=== PATIENT | male | born 1960 | race African-American/Black ===

== ENCOUNTER 2016-10-31 09:40 | Inpatient (IN) | payer OTHER ==
[~2016-10-31] VITALS: Ht 167.6 cm; Wt 75.5 kg
[~2016-10-31 09:40] MED LIST: BUDE10.2 IH; CETI10CA PO; CETI10TA16 PO; DOCU100C28 PO; HYDR-2678 PO; LOSA100T6 PO; POLY119P4 PO; POLY17PO29 PO
--- NOTE | 2016-10-31 09:42 | PHYS DOC ---
Past Medical History Past Medical History: Constipation, Hypertension, Other Additional Past Medical Histor: seasonal allergies, ABDOMINAL PAIN, drug seeking behavior Past Surgical History: No Surgical History Alcohol Use: Occasionally Drug Use: None Adult General Chief Complaint Chief Complaint: LOWER EXTREMITY SWELLING HPI HPI Patient is a 57 year old -Vietnamese male who presents with bilateral foot swelling. He states that this morning he notices feet swelling. He denies any pain in his ankles, he denies any Pain any shortness of breath fevers chills nausea vomiting. He does have a sore on the bottom of his right lateral distal foot that's been there for he states about a week that's been painful. He states he's been taking Aleve 2 tablets every other day for chronic pain and this isn't helping this pain. 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 States he took his last blood pressure medicine today. Review of Systems Review of Systems Constitutional: Denies fever or chills [] Eyes: Denies change in visual acuity, redness, or eye pain [] HENT: Denies nasal congestion or sore throat [] Respiratory: Denies cough or shortness of breath [] Cardiovascular: No additional information not addressed in HPI [] GI: Denies abdominal pain, nausea, vomiting, bloody stools or diarrhea [] : Denies dysuria or hematuria [] Musculoskeletal: Denies back pain or joint pain [] Integument: Denies rash or skin lesions [] Neurologic: Denies headache, focal weakness or sensory changes [] Endocrine: Denies polyuria or polydipsia [] Current Medications Current Medications Current Medications Medications (Trade) Dose Ordered Sig/[facility] Start Time Stop Time Status Last Admin Dose Admin Aspirin (Kathleen Aspirin) 325 mg 1X ONCE 10/31/16 11:30 10/31/16 11:31 Morphine Sulfate 2 mg PRN Q2HR PRN 10/31/16 11:30 11/01/16 11:29 Ondansetron HCl (Zofran) 4 mg PRN Q8HRS PRN 10/31/16 11:30 11/01/16 11:29 Allergies Allergies Allergies Coded Allergies Type Severity Reaction Last Updated Verified No Known Drug Allergies 10/31/16 No Physical Exam Physical Exam Constitutional: Well developed, well nourished, no acute distress, non-toxic appearance. [] HENT: Normocephalic, atraumatic, bilateral external ears normal, oropharynx moist, no oral exudates, nose normal. [] Eyes: PERRLA, EOMI, conjunctiva normal, no discharge. [] Neck: Normal range of motion, no tenderness, supple, no stridor. [] Cardiovascular:Heart rate regular rhythm, no murmur [] Lungs & Thorax: Bilateral breath sounds clear to auscultation [] Abdomen: Bowel sounds normal, soft, no tenderness, no masses, no pulsatile masses. [] Skin: Warm, dry, no erythema, no rash. [] Back: No tenderness, no CVA tenderness. [] Extremities: No tenderness, no cyanosis, no clubbing, ROM intact, 1+ bilateral lower show many edema from ankles to mid lr, 3 mm callus on the distal lateral plantar aspect of the right foot, no erythema noted. [] Neurologic: Alert and oriented X 3, normal motor function, normal sensory function, no focal deficits noted. [] Psychologic: Affect normal, judgement normal, mood normal. [] Current Patient Data Vital Signs Vital Signs Date Time Temp Pulse Resp B/P (MAP) Pulse Ox O2 Delivery O2 Flow Rate FiO2 10/31/16 09:55 97.8 109 19 137/94 (108) 97 Room Air 97.8 Lab Values Laboratory Tests Test 10/31/16 10:05 10/31/16 10:10 Urine Collection Type Unknown Urine Color [place] Urine Clarity Clear Urine pH 5.5 Urine Specific [place] 1.025 Urine Protein Negative mg/dL (NEG-TRACE) Urine Glucose (UA) Negative mg/dL (NEG) Urine Ketones (Stick) 40 mg/dL (NEG) Urine Blood Negative (NEG) Urine Nitrite (NEG) Urine Bilirubin (NEG) Urine Urobilinogen Dipstick 2.0 mg/dL (0.2 mg/dL) Urine Leukocyte Esterase (NEG) Urine RBC 0 /HPF (0-2) Urine WBC 1-4 /HPF (0-4) Urine Squamous Epithelial Cells Few /LPF Urine Bacteria Few /HPF (0-FEW) Urine Mucus Marked /LPF Urine Opiates Screen Neg (NEG) Urine Methadone Screen Neg (NEG) Urine Barbiturates Neg (NEG) Urine Phencyclidine Screen Neg (NEG) Urine Amphetamine/Methamphetamine Neg (NEG) Urine Benzodiazepines Screen Neg (NEG) Urine Cocaine Screen Neg (NEG) Urine Cannabinoids Screen Pos (NEG) Urine Ethyl Alcohol Pos (NEG) White Blood Count 9.7 x10^3/uL (4.0-11.0) Red Blood Count 2.52 x10^6/uL (4.30-5.70) L Hemoglobin 10.1 g/dL (13.0-17.5) L Hematocrit 28.1 % (39.0-53.0) L Mean Corpuscular Volume 111 fL (79-100) H Mean Corpuscular Hemoglobin 40 pg (25-35) H Mean Corpuscular Hemoglobin Concent 36 g/dL (31-37) Red Cell Distribution Width 16.9 % (11.5-14.5) H Platelet Count 129 x10^3/uL (140-400) L Neutrophils (%) (Auto) 55 % (31-73) Lymphocytes (%) (Auto) 28 % (24-48) Monocytes (%) (Auto) 16 % (0-9) H Eosinophils (%) (Auto) 0 % (0-3) Basophils (%) (Auto) 0 % (0-3) Neutrophils # (Auto) 5.4 x10^3uL (1.8-7.7) Lymphocytes # (Auto) 2.8 x10^3/uL (1.0-4.8) Monocytes # (Auto) 1.6 x10^3/uL (0.0-1.1) H Eosinophils # (Auto) 0.0 x10^3/uL (0.0-0.7) Basophils # (Auto) 0.0 x10^3/uL (0.0-0.2) Platelet Estimate Decreased (ADEQUATE) Polychromasia Present Anisocytosis Slight Macrocytosis Present Target Cells Present Sodium Level 129 mmol/L (136-145) L Potassium Level 3.9 mmol/L (3.5-5.1) [place] Level 94 mmol/L (98-107) L Carbon Dioxide Level 24 mmol/L (21-32) Anion Gap 11 (6-14) Blood Urea Nitrogen 8 mg/dL (8-26) Creatinine 1.0 mg/dL (0.7-1.3) Estimated GFR (Cockcroft-Gault) 94.2 Glucose Level 84 mg/dL (70-99) Calcium Level 8.8 mg/dL (8.5-10.1) Magnesium Level 1.8 mg/dL (1.8-2.4) Total Bilirubin 7.5 mg/dL (0.2-1.0) H Direct Bilirubin 4.6 mg/dL (0.0-0.2) H Aspartate Amino Transferase (AST) 204 U/L (15-37) H Alanine Aminotransferase (ALT) 71 U/L (16-63) H Alkaline Phosphatase 146 U/L (46-116) H Creatine Kinase 265 U/L (39-308) Creatine Kinase MB (Mass) 2.1 ng/mL (0.0-3.6) Creatine Kinase MB Relative Index 0.8 % (0-4) Troponin I Quantitative 0.252 ng/mL (0.000-0.055) YP-Iee-S-Type Natriuretic Peptide 839 pg/mL (0-124) H Total Protein 7.7 g/dL (6.4-8.2) Albumin 2.6 g/dL (3.4-5.0) L Thyroid Stimulating Hormone (TSH) 0.355 uIU/mL (0.358-3.74) L Laboratory Tests 10/31/16 10:10 Laboratory Tests 10/31/16 10:10 EKG EKG EKG shows sinus tachycardia cardia the rate of [address] elevations , T-wave inversions noted in lead 3, left axis deviation, QTC 442 ms, as interpreted by me. Radiology/Procedures Radiology/Procedures [facility] [address] [place], [place] [id number] IMAGING REPORT Signed PATIENT: YADI RESTREPO ACCOUNT: [id number] : 1960 LOCATION: ER AGE: 56 SEX: M EXAM STATUS: REG ER ORD. PHYSICIAN: ELDA PRITCHETT MD REASON: lower ext swelling PROCEDURE: PORTABLE CHEST 1V Indication: Lower leg swelling. Time of exam 10:14 AM Comparison is made with prior chest from 10/17/2013. The heart size is stable. There is a calcified nodule in the right upper lobe consistent with a granuloma. There is some atelectasis in the left base. Otherwise the lungs are clear. No effusion or pneumothorax is seen. Impression: Left basilar subsegmental atelectasis. DICTATED and SIGNED BY: NOEL OLIVER MD DATE: 10/31/16 1019 CC: ELDA PRITCHETT MD; ROCIO DASH MD ~ Impressions: Elevated troponin Elevated bilirubin Alcohol abuse hypertension Course & Med Decision Making Course & Med Decision Making Pertinent Labs and Imaging studies reviewed. (See chart for details) Patient does not have any chest pain or shortness of breath. He does have an elevated troponin and elevated total bilirubin. EKG shows T-wave inversions in lead 3 otherwise sinus tachycardia at 103. Patient is being admitted to the hospitalist with cardiology and GI consultation. 324 aspirin has been administered. The patient's agreeable plans in stable condition this time. Interim orders have been written. Dr. Parada's nurse practitioner Tayler regarding consultation. Dragon Disclaimer Dragon Disclaimer This electronic medical record was generated, in whole or in part, using a voice recognition dictation system. Departure Departure Impression: Primary Impression: Elevated troponin Disposition: ADMITTED INPATIENT Admitting Physician: Kiko Starr Condition: STABLE Referrals: JUDAH FARIA MD (PCP) ELDA PRITCHETT MD Oct 31, 2016 09:42
[2016-10-31 10:18] LABS: BASO % 0 % (0-3); EOS % 0 % (0-3); HEMATOCRIT 28.1 % (39.0-53.0); HEMOGLOBIN 10.1 g/dL (13.0-17.5); LYMPH # 2.8 x10^3/uL (1.0-4.8); LYMPH % 28 % (24-48); MEAN CORPUSCULAR HEMOGLOBIN 40 pg (25-35); MEAN CORPUSCULAR HGB CONC 36 g/dL (31-37); MEAN CORPUSCULAR VOLUME 111 fL (79-100); MONO % 16 % (0-9); NEUT % 55 % (31-73); PLATELET COUNT 129 x10^3/uL (140-400); RED BLOOD COUNT 2.52 x10^6/uL (4.30-5.70); RED CELL DISTRIBUTION WIDTH 16.9 % (11.5-14.5); WHITE BLOOD COUNT 9.7 x10^3/uL (4.0-11.0)
[2016-10-31 10:20] LABS: GLUCOSE,URINE NEGATIVE (NEG); PH,URINE 5.5; PROTEIN,URINE NEGATIVE (NEG-TRACE)
--- NOTE | 2016-10-31 10:22 | RAD ---
Indication: Lower leg swelling. Time of exam 10:14 AM Comparison is made with prior chest from 10/17/2013. The heart size is stable. There is a calcified nodule in the right upper lobe consistent with a granuloma. There is some atelectasis in the left base. Otherwise the lungs are clear. No effusion or pneumothorax is seen. Impression: Left basilar subsegmental atelectasis.
[2016-10-31 10:25] LABS: BARBITURATES NEG (NEG); BENZODIAZEPINES NEG (NEG); CANNABINOIDS POS (NEG); COCAINE NEG (NEG); METHADONE NEG (NEG); OPIATES NEG (NEG); PHENCYCLIDINE NEG (NEG)
[2016-10-31 10:31] LABS: BACTERIA,URINE FEW /HPF (0-FEW); RBC,URINE 0 /HPF (0-2); SQUAMOUS EPITHELIAL CELL,UR FEW /LPF
--- NOTE | 2016-10-31 10:33 | EKG ---
[facility] [address] [place] [id number] Test Date: 2016-10-31 Test Time: 10:05:17 Pat Name: YADI RESTREPO Department: Room: Gender: M Grape Picker: : [phone] Requested By: ELDA PRITCHETT Order Number: [id number] Reading MD: Carolyn Govea Measurements Intervals Leonore Rate: 103 P: 0 CO: 156 QRS: -15 QRSD: 80 T: 9 QT: 336 QTc: 442 Interpretive Statements SINUS TACHYCARDIA LEFTWARD AXIS QRS(T) CONTOUR ABNORMALITY CANNOT RULE OUT ANTEROLATERAL MYOCARDIAL DAMAGE Electronically Signed On 11-02-2016 14:05:17 CDT by Carolyn Govea
[2016-10-31 10:35] LABS: CALCIUM 8.8 mg/dL (8.5-10.1); GFR 94.2; POTASSIUM 3.9 mmol/L (3.5-5.1)
[2016-10-31 10:41] LABS: ALBUMIN 2.6 g/dL (3.4-5.0); DIRECT BILIRUBIN 4.6 mg/dL (0.0-0.2); MAGNESIUM 1.8 mg/dL (1.8-2.4); TOTAL BILIRUBIN 7.5 mg/dL (0.2-1.0); TOTAL PROTEIN 7.7 g/dL (6.4-8.2)
[2016-10-31 10:49] LABS: CKMB MASS 2.1 ng/mL (0.0-3.6)
[2016-10-31 11:13] LABS: PLT ESTIMATE DECREASED (ADEQUATE)
[2016-10-31 11:14] LABS: ANISOCYTOSIS SLIGHT; POLYCHROMASIA PRESENT; TARGET CELLS PRESENT
[2016-10-31] MEDS ORDERED: ASPIRIN 325 MG TABLET PO ONE (11:30)
[2016-10-31] MEDS ORDERED: ONDANSETRON PF 4 MG/2 ML VIAL. IV PRN ×2 (11:30→16:15)
--- NOTE | 2016-10-31 11:31 | ACF ---
Admission Forms Criteria MYOCARDIAL INFARCTION Clinical Indications for Admission to Inpatient Care (Place 'X' for any and all applicable criteria): Admission is indicated for 1 or more of the following (1)(2)(3)(4): [ ]I. Acute AL [ ]II. Contraindications and/or Inappropriate clinical situations for Observational Care in patients with Myocardial Infarction, when ANY ONE of the following is required: [ ]a) Patient with High risk of cardiac embolism (e.g, patients with previous cardiac embolism, LVEF < 40%, age >75 and patients with prosthetic valve) 18 [ ]b) Patient with Moderate risk including DM patient, CAD and patient aged 65-75 18 [ ]c) Patient with any change in cardiac biomarker especially troponin should be managed as high risk in an inpatient setting 19 [ ]d) Physician judgement irrespective of ECG and other diagnostic findings 20 [ ]III.General contraindications and/or Inappropriate clinical situations for Observational Care in patients with Myocardial Infarction, when ANY ONE of the following is required: [ ]a) Prediction of prolongation of LOS based on ANY ONE of the following may be considered as a contraindication for observational care 2, 3, 4, 5, 6, 7, 8, 9, 10, 11 [ ]i) Age > 65 yrs. [ ]ii) Patient arriving by ambulance [ ]iii) Patient with high acuity [ ]iv) Patient requiring vital sign monitoring [ ]v) Patient on IV medication [ ]b) Systolic blood pressures greater than or equal to 180mmHg 3,12 [ ]c) Patient with altered mental status including delirium and other alteration of consciousness, (3) [ ]d) Patient whose discharge disposition will be to a usp home or rehabilitation home should not be managed in Emergency Department Observation Unit. CMS rule requires 3 days hospital stay before such placement. 3,13 [ ]e) Patient with failure to thrive due to broad array of etiologies 3 ,16,17 [ ]f) Inability to ambulate 3,14 Extended stay beyond goal length of stay may be needed for (1)(18)(20)(24)(25): [ ]a) Hemodynamic instability, persisting symptoms after intensive medical management, or recurring severe, prolonged symptoms [ ]b) Intravascular procedural complications such as acute vessel closure, stent thrombosis, stent malposition, or vessel dissection (26)(27)(28) [ ]c) Extravascular procedural complications such as retroperitoneal hematoma , pericardial effusion, or cardiac tamponade [ ]d) Entry site complications causing bleeding, hematoma or distal ischemia and requiring ongoing monitoring, surgical repair or surgical thrombectomy. Dangerous arrhythmia [ ]e) Complicated percutaneous coronary intervention (e.g., unsuccessful percutaneous coronary intervention or percutaneous coronary intervention of non- [place] vessel) [ ]f) Urgent or emergent surgery for complications of AL (e.g., ventricular rupture, valvular insufficiency) [ ]g) Surgical revascularization via coronary artery bypass graft [ ]h) Heart failure (e.g., pulmonary edema) [ ]i) Unstable pulmonary comorbidities, including COPD or pneumonia (31) [ ]j) Acute renal failure The original [employer] content created by [employer] has been revised. The portions of the content which have been revised are identified through the use of italic text or in bold, and [facility] has neither reviewed nor approved the modified material. All other unmodified content is copyright [facility] Please see references footnoted in the original [employer] edition 2016 YVAN WILBURN Oct 31, 2016 11:31
--- NOTE | 2016-10-31 12:05 | ACF ---
Admission Forms Criteria TELEMETRY CARE Telemetry Admission Guidelines (Place 'X' for any and all applicable criteria): Admission to telemetry [A] may be indicated for ANY ONE of the following(1)(2)(3 )(4)(5): [X]I. Cardiac disease, including ANY ONE of the following (9)(10)(11)(12)(13 ): [ ]a) Postacute MO [ ]b) Low-risk patients with ST-segment elevation MO who have undergone successful percutaneous coronary intervention [ ]c) Unstable angina [X]d) Suspected MO (until it is ruled out) [ ]e) Post cardiac surgery (first 48 to 72 hours unless complications occur) [ ]f) Acute arrhythmias (including significant tachycardia or bradycardia) [B] [ ]g) Firing of an implantable cardioverter defibrillator [C] [ ]h) Suspected pacemaker or implantable cardioverter defibrillator malfunction (10) [ ]i) New administration or adjustment of an antiarrhythmic drug [D ] [ ]j) Child admitted for acute congestive heart failure [ ]j) Long QT syndrome [ ]k) Advanced heart block (eg, second-degree Mobitz type II, third- degree heart block) [ ]l) Acute myocarditis or pericarditis [ ]m) Short-term (ambulatory or inpatient) monitoring after a cardiac procedure as indicated by ANY ONE of the following [E]: [ ]i) Electrophysiologic studies [ ]ii) Percutaneous coronary intervention with stent placement [ ]iii) Pacemaker placement with cardiac conduction defect [ ]iv) Implantable cardiac defibrillator placement [ ]II. Drug overdose or poisoning with substance that causes arrhythmias or QT prolongation (eg, phenothiazines, sympathomimetic agents, cyclic antidepressants, digitalis, antiarrhythmic drugs)(15) [ ]III. Short-term (ambulatory or inpatient) monitoring after therapeutic or diagnostic procedure requiring conscious sedation or anesthesia (eg, endoscopy, elective cardioversion) [ ]IV. Acute cerebrovascular even[F](18) [ ]V. Massive blood transfusion (eg, at least 10 units of packed red blood cells in 24 hours) [ ]. Variceal bleeding after endoscopy, sclerotherapy, or IV vasopressin [ ]VII. Uncorrected electrolyte abnormalities associated with an increased risk of dangerous arrhythmia [G]; examples include [ ]a) Hyperkalemia with attributable ECG changes [ ]b) Potassium greater than 6.5 mmol/L (mEq/L) in a patient without history of chronic renal disease [ ]c) Prolonged QT attributed to hypokalemia, hypomagnesemia, or hypocalcemia [ ]VIII.Unexplained syncope or other neurologic event suspected of being due to arrhythmia due to a finding that increases risk; examples include(19)(20)(21): [ ]a) High-risk ECG findings (eg, bifascicular block, bradycardia, abnormal QT interval, ventricular pre- excitation) [ ]b) History of previous syncope due to arrhythmia [ ]c) Abnormal ventricular function (eg, reduced ejection fraction ) [ ]d) Exertional or supine syncope [ ]e) Concerning syncope characteristics (eg, sudden loss of consciousness without prodrome) [ ]f) Family history of sudden [ ]g) Use of arrhythmogenic medication [ ]h) Suspected cardiac ischemia [ ]i) Known channelopathy (eg, long QT syndrome, Brugada syndrome, or catecholaminergic paroxysmal ventricular tachycardia) [ ]j) Known structural heart disease (eg, hypertrophic cardiomyopathy , severe valvular disease) [ ]k) Palpitations preceding syncope The original [employer] content created by [employer] has been revised. The portions of the content which have been revised are identified through the use of italic text or in bold, and [employer] has neither reviewed nor approved the modified material. All other unmodified content is copyright [employer]. Please see references footnoted in the original [employer] edition 2016 Admission Criteria Met?: Yes YVAN WILBURN Oct 31, 2016 12:05
[2016-10-31] MEDS: MORPHINE SULFATE 2 MG/ML DISP.SYRIN. IV PRN ×3 (12:35→20:34)
[2016-10-31 12:41] VITALS: BP 123/88
[2016-10-31 12:43] VITALS: BP 123/88
[2016-10-31 13:08] VITALS: BP 123/88
--- NOTE | 2016-10-31 13:40 | PDOC2 ---
GI CONSULT Reason For Consult: Elevated bilirubin HPI: HPI: 56 y/o AA male admitted through ER. Pt tells me came to ER for a sore on the bottom of his right foot, first noticed on 10/28/16. Denies other complaints to me including swelling, CP, SOA, etc. Per discussion w/ ER physician, had c/o BLE swelling; additionally, had noted some yellowing of his eyes. It seems he has a h/o heavy drinking but is not willing to discuss this. Labs are significant for Hgb 10.1, plt 129, Na+ 129, bili 7.5, direct bili 4.6, AST 204, ALT 71, Alk Phos 146, albumin 2.6, D-dimer >14, troponin 0.252, TSH 0.355, tox screen + ethyl alcohol +cannabinoids. Cardiology has been consulted. Occasional GERD symptoms, takes Prilosec PRN. No previous EGD. Denies n/v, bloating, diarrhea, constipation, hematochezia, melena, weight loss/gain. Believes had previous colonoscopy during incarceration, thinks normal results. Per records, has been admitted a few times before for pancreatitis, thought to be related to alcohol. Previous US (last 2013) w/ fatty liver, mildly dilated pancreatic duct, and normal gallbladder. Previous CT c/w acute pancreatitis. PMH: PMH: HTN, GERD, pancreatitis, allergic rhinitis FH: Family History: Cancer (mother had rectal cancer) Social History: Smoke: <1 pack per day ALCOHOL: other (reports drinking one 12oz can of beer daily, also a few months ago drank half a pint of liquor once) Drugs: Marijuana (he denies, tox screen +) ROS: GEN: Denies fevers, chills, sweats HEENT: +yellowing in eyes CV: Denies chest pain RESP: Denies shortness of air, cough GI: Per HPI : Denies hematuria, dysuria ENDO: Denies weight changes NEURO: Denies confusion, dizziness MSK: right foot pain SKIN: Denies jaundice, pruritus Vitals: Vitals: Vital Signs Date Time Temp Pulse Resp B/P (MAP) Pulse Ox O2 Delivery O2 Flow Rate FiO2 10/31/16 13:08 98.7 20 123/88 (100) 95 Room Air 98.7 10/31/16 12:43 20 Labs: Labs: Laboratory Tests Test 10/31/16 10:05 10/31/16 10:10 Urine Collection Type Unknown Urine Color [place] Urine Clarity Clear Urine pH 5.5 Urine Specific [place] 1.025 Urine Protein Negative mg/dL (NEG-TRACE) Urine Glucose (UA) Negative mg/dL (NEG) Urine Ketones (Stick) 40 mg/dL (NEG) Urine Blood Negative (NEG) Urine Nitrite (NEG) Urine Bilirubin (NEG) Urine Urobilinogen Dipstick 2.0 mg/dL (0.2 mg/dL) Urine Leukocyte Esterase (NEG) Urine RBC 0 /HPF (0-2) Urine WBC 1-4 /HPF (0-4) Urine Squamous Epithelial Cells Few /LPF Urine Bacteria Few /HPF (0-FEW) Urine Mucus Marked /LPF Urine Opiates Screen Neg (NEG) Urine Methadone Screen Neg (NEG) Urine Barbiturates Neg (NEG) Urine Phencyclidine Screen Neg (NEG) Urine Amphetamine/Methamphetamine Neg (NEG) Urine Benzodiazepines Screen Neg (NEG) Urine Cocaine Screen Neg (NEG) Urine Cannabinoids Screen Pos (NEG) Urine Ethyl Alcohol Pos (NEG) White Blood Count 9.7 x10^3/uL (4.0-11.0) Red Blood Count 2.52 x10^6/uL (4.30-5.70) Hemoglobin 10.1 g/dL (13.0-17.5) Hematocrit 28.1 % (39.0-53.0) Mean Corpuscular Volume 111 fL (79-100) Mean Corpuscular Hemoglobin 40 pg (25-35) Mean Corpuscular Hemoglobin Concent 36 g/dL (31-37) Red Cell Distribution Width 16.9 % (11.5-14.5) Platelet Count 129 x10^3/uL (140-400) Neutrophils (%) (Auto) 55 % (31-73) Lymphocytes (%) (Auto) 28 % (24-48) Monocytes (%) (Auto) 16 % (0-9) Eosinophils (%) (Auto) 0 % (0-3) Basophils (%) (Auto) 0 % (0-3) Neutrophils # (Auto) 5.4 x10^3uL (1.8-7.7) Lymphocytes # (Auto) 2.8 x10^3/uL (1.0-4.8) Monocytes # (Auto) 1.6 x10^3/uL (0.0-1.1) Eosinophils # (Auto) 0.0 x10^3/uL (0.0-0.7) Basophils # (Auto) 0.0 x10^3/uL (0.0-0.2) Platelet Estimate Decreased (ADEQUATE) Polychromasia Present Anisocytosis Slight Macrocytosis Present Target Cells Present D-Dimer ([place]) 14.41 ug/mlFEU (0.00-0.50) Sodium Level 129 mmol/L (136-145) Potassium Level 3.9 mmol/L (3.5-5.1) [place] Level 94 mmol/L (98-107) Carbon Dioxide Level 24 mmol/L (21-32) Anion Gap 11 (6-14) Blood Urea Nitrogen 8 mg/dL (8-26) Creatinine 1.0 mg/dL (0.7-1.3) Estimated GFR (Cockcroft-Gault) 94.2 Glucose Level 84 mg/dL (70-99) Calcium Level 8.8 mg/dL (8.5-10.1) Magnesium Level 1.8 mg/dL (1.8-2.4) Total Bilirubin 7.5 mg/dL (0.2-1.0) Direct Bilirubin 4.6 mg/dL (0.0-0.2) Aspartate Amino Transf (AST/SGOT) 204 U/L (15-37) Alanine Aminotransferase (ALT/SGPT) 71 U/L (16-63) Alkaline Phosphatase 146 U/L (46-116) Creatine Kinase 265 U/L (39-308) Creatine Kinase MB (Mass) 2.1 ng/mL (0.0-3.6) Creatine Kinase MB Relative Index 0.8 % (0-4) Troponin I Quantitative 0.252 ng/mL (0.000-0.055) IR-Egz-C-Type Natriuretic Peptide 839 pg/mL (0-124) Total Protein 7.7 g/dL (6.4-8.2) Albumin 2.6 g/dL (3.4-5.0) Thyroid Stimulating Hormone (TSH) 0.355 uIU/mL (0.358-3.74) Allergies: Coded Allergies: No Known Drug Allergies (Unverified , 10/31/16) Medications: Current Medications Medications (Trade) Dose Ordered Sig/[place] Route PRN Reason Start Time Stop Time Status Last Admin Dose Admin Aspirin (Kathleen Aspirin) 325 mg 1X ONCE PO 10/31/16 11:30 10/31/16 11:31 DC 10/31/16 12:35 Morphine Sulfate 2 mg PRN Q2HR PRN IV PAIN 10/31/16 11:30 11/01/16 11:29 10/31/16 12:35 Imaging: Imaging: CXR 10/31/16 Impression: Left basilar subsegmental atelectasis. PE: GEN: NAD HEENT: +scleral icterus LUNGS: clear anteriorly HEART: RR ABD: BS+, distended/tight, non-tender EXTREMITY: BLE edema SKIN: right foot w/ plantar callus on distal/lateral aspect NEURO/PSYCH: A & O 3 A/P: A/P: Hyperbilirubinemia -bili >7, has noted scleral icterus recently -Hepatitis panel ordered by ER Alcohol/drug abuse -he denies this, labs suggest otherwise (elevated MCV, low plt, AST/ALT ratio) -additional h/o pancreatitis attributed to alcohol GERD -says uses Prilosec PRN, no previous EGD CRC screen, FH rectal cancer -recalls previously normal colonoscopy during incarceration Macrocytic anemia, thrombocytopenia, elevated troponin, elevated D-dimer, hyponatremia -- ?alcoholic hepatitis - will do abd US for further eval of liver. Not forthcoming w/ history. STARR CHIN Oct 31, 2016 13:40
[2016-10-31] MEDS ORDERED: OMEP10CA3 PO (13:42)
[2016-10-31] MEDS ORDERED: VENL37.56 PO (13:42)
[2016-10-31 13:58] VITALS: BP 109/77
--- NOTE | 2016-10-31 13:58 | PDOC2 ---
CARDIAC CONSULT DATE OF CONSULT Date of Consult DATE: 10/31/16 TIME: 13:53 REASON FOR CONSULT Reason for Consult: Elevated troponin REFERRING PHYSICIAN Referring Physician: Dr. Banks SOURCE Source: Chart review, Patient HISTORY OF PRESENT ILLNESS HISTORY OF PRESENT ILLNESS This is a 56 yo male who presented with complaints of LE edema. Patient reports LE edema has been ongoing since Friday. Denies any SOA, orthopnea, BROWN, chest pain, palpitations, or dizziness. Has also noticed yellowing of the sclera since Friday. Patient not very forthcoming with information. 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 No prior history of cardiac disease or prior cardiac workup. PAST MEDICAL HISTORY Cardiovascular: HTN Pulmonary: No pertinent hx GI: GERD Hepatobiliary: Other (pancreatitis ) Musculoskeletal: Osteoarthritis Rheumatologic: No pertinent hx Infectious disease: No pertinent hx ENT: No pertinent hx Renal/: No pertinent hx Endocrine: No pertinent hx Dermatology: No pertinent hx PAST SURGICAL HISTORY Past Surgical History: No pertinent history FAMILY HISTORY Family History: Hypertension SOCIAL HISTORY Smoke: <1 pack per day ALCOHOL: other (daily ) Drugs: Marijuana (denies, UDS +) Lives: with Family CURRENT MEDICATIONS CURRENT MEDICATIONS Current Medications Medications (Trade) Dose Ordered Sig/Luana Route PRN Reason Start Time Stop Time Status Last Admin Dose Admin Aspirin (Kathleen Aspirin) 325 mg 1X ONCE PO 10/31/16 11:30 10/31/16 11:31 DC 10/31/16 12:35 Morphine Sulfate 2 mg PRN Q2HR PRN IV PAIN 10/31/16 11:30 11/01/16 11:29 10/31/16 12:35 ALLERGIES ALLERGIES: Coded Allergies: No Known Drug Allergies (Unverified , 10/31/16) ROS Review of System 14 point ROS conducted with pertinent positives noted above in HPI. PHYSICAL EXAM General: Alert, Oriented X3, Cooperative HEENT: Other (scleral icterus ) Lungs: Clear to auscultation Heart: Regular rate, Normal S1, Normal S2, Other (tele: SR-ST) Abdomen: Other (distended, firm ) Extremities: Other (1-2+ bilateral LE edema ) Skin: No significant lesion Neuro: Sensation intact Psych/Mental Status: Mental status NL, Other (flat affect ) VITALS VITALS Vital Signs Date Time Temp Pulse Resp B/P (MAP) Pulse Ox O2 Delivery O2 Flow Rate FiO2 6/29/17 13:32 95 Room Air 10/31/16 13:08 98.7 20 123/88 (100) 98.7 10/31/16 12:43 20 LABS Lab: Laboratory Tests Test 10/31/16 10:05 10/31/16 10:10 Urine Collection Type Unknown Urine Color [place] Urine Clarity Clear Urine pH 5.5 Urine Specific [place] 1.025 Urine Protein Negative mg/dL (NEG-TRACE) Urine Glucose (UA) Negative mg/dL (NEG) Urine Ketones (Stick) 40 mg/dL (NEG) Urine Blood Negative (NEG) Urine Nitrite (NEG) Urine Bilirubin (NEG) Urine Urobilinogen Dipstick 2.0 mg/dL (0.2 mg/dL) Urine Leukocyte Esterase (NEG) Urine RBC 0 /HPF (0-2) Urine WBC 1-4 /HPF (0-4) Urine Squamous Epithelial Cells Few /LPF Urine Bacteria Few /HPF (0-FEW) Urine Mucus Marked /LPF Urine Opiates Screen Neg (NEG) Urine Methadone Screen Neg (NEG) Urine Barbiturates Neg (NEG) Urine Phencyclidine Screen Neg (NEG) Urine Amphetamine/Methamphetamine Neg (NEG) Urine Benzodiazepines Screen Neg (NEG) Urine Cocaine Screen Neg (NEG) Urine Cannabinoids Screen Pos (NEG) Urine Ethyl Alcohol Pos (NEG) White Blood Count 9.7 x10^3/uL (4.0-11.0) Red Blood Count 2.52 x10^6/uL (4.30-5.70) Hemoglobin 10.1 g/dL (13.0-17.5) Hematocrit 28.1 % (39.0-53.0) Mean Corpuscular Volume 111 fL (79-100) Mean Corpuscular Hemoglobin 40 pg (25-35) Mean Corpuscular Hemoglobin Concent 36 g/dL (31-37) Red Cell Distribution Width 16.9 % (11.5-14.5) Platelet Count 129 x10^3/uL (140-400) Neutrophils (%) (Auto) 55 % (31-73) Lymphocytes (%) (Auto) 28 % (24-48) Monocytes (%) (Auto) 16 % (0-9) Eosinophils (%) (Auto) 0 % (0-3) Basophils (%) (Auto) 0 % (0-3) Neutrophils # (Auto) 5.4 x10^3uL (1.8-7.7) Lymphocytes # (Auto) 2.8 x10^3/uL (1.0-4.8) Monocytes # (Auto) 1.6 x10^3/uL (0.0-1.1) Eosinophils # (Auto) 0.0 x10^3/uL (0.0-0.7) Basophils # (Auto) 0.0 x10^3/uL (0.0-0.2) Platelet Estimate Decreased (ADEQUATE) Polychromasia Present Anisocytosis Slight Macrocytosis Present Target Cells Present D-Dimer (Vianney) 14.41 ug/mlFEU (0.00-0.50) Sodium Level 129 mmol/L (136-145) Potassium Level 3.9 mmol/L (3.5-5.1) Chloride Level 94 mmol/L (98-107) Carbon Dioxide Level 24 mmol/L (21-32) Anion Gap 11 (6-14) Blood Urea Nitrogen 8 mg/dL (8-26) Creatinine 1.0 mg/dL (0.7-1.3) Estimated GFR (Cockcroft-Gault) 94.2 Glucose Level 84 mg/dL (70-99) Calcium Level 8.8 mg/dL (8.5-10.1) Magnesium Level 1.8 mg/dL (1.8-2.4) Total Bilirubin 7.5 mg/dL (0.2-1.0) Direct Bilirubin 4.6 mg/dL (0.0-0.2) Aspartate Amino Transf (AST/SGOT) 204 U/L (15-37) Alanine Aminotransferase (ALT/SGPT) 71 U/L (16-63) Alkaline Phosphatase 146 U/L (46-116) Creatine Kinase 265 U/L (39-308) Creatine Kinase MB (Mass) 2.1 ng/mL (0.0-3.6) Creatine Kinase MB Relative Index 0.8 % (0-4) Troponin I Quantitative 0.252 ng/mL (0.000-0.055) EB-Zxe-P-Type Natriuretic Peptide 839 pg/mL (0-124) Total Protein 7.7 g/dL (6.4-8.2) Albumin 2.6 g/dL (3.4-5.0) Thyroid Stimulating Hormone (TSH) 0.355 uIU/mL (0.358-3.74) ASSESSMENT/PLAN ASSESSMENT/PLAN 1. NSTEMI; initial 0.252. suspect this is type II demand ischemia 2. Hypertension; controlled without meds 3. Mildly elevated NT Pro BNP; CXR without significant fluid accumulation 4. Hyponatremia 5. Hyperbilirubinemia; ? alcoholic hepatitis/cirrhosis, abd US pending- per GI 6. Elevated d-dimer 7. Substance abuse Recommendations 1. Trend enzymes. check lipids. ASA. 2. Will give dose of lasix now 3. ? edema related to cirrhosis. Will check echocardiogram to assess LV function 4. Consider further ischemic evaluation, possibly as an outpatient. 5. Further recommendations pending diagnostics. Problems: VIN VAZQUEZ APRN Oct 31, 2016 13:58
[2016-10-31] MEDS ORDERED: FUROSEMIDE 40 MG/4 ML VIAL. IVP ONE (15:45)
--- NOTE | 2016-10-31 16:09 | CARD ---
APPROVED REPORT EXAM: Two-dimensional and M-mode echocardiogram with Doppler and color Doppler. Other Information Quality : Average Rhythm : Tachycardia INDICATION elevated troponin 2D DIMENSIONS RVDd2.6 (2.9-3.5cm)Left Atrium(2D)3.9 (1.6-4.0cm) IVSd1.0 (0.7-1.1cm)Aortic Root(2D)3.3 (2.0-3.7cm) LVDd4.3 (3.9-5.9cm)LVOT Diameter2.1 (1.8-2.4cm) PWd1.0 (0.7-1.1cm)LVDs3.2 (2.5-4.0cm) FS (%) 25.6 %SV43.0 ml LVEF(%)50.7 (>50%) Aortic Valve AoV Peak Eh.146.1cm/sAoV VTI20.7cm AO Peak GR.8.5mmHgLVOT Peak Eh.118.3cm/s LVOT VTI 16.91cmAO Mean GR.5mmHg NOREEN (VMAX)2.11yu2OUI (VTI)2.92cm2 Mitral Valve MV E Pbppdzlo87.2cm/sMV DECEL ODJO211vj MV A Qfouereq40.4cm/sMV HIM89yb E/A Ratio1.0MV A Mwiktcnx12ea MVA (PHT)3.79cm2 TDI E/Lateral E'7.1E/Medial E'13.3 Pulmonary Valve PV Peak Mnlsmurv291.0cm/sPV Peak Grad.7mmHg RVOT VTI12.4cm Tricuspid Valve TR P. Vtrnfaeb113ai/sRAP WAWXSIFC1reHz TR Peak Gr.83ntWpFXPV17caFy LEFT VENTRICLE The left ventricle is normal size. There is normal left ventricular wall thickness. Left ventricle sy stolic function is normal.The Ejection Fraction is 50-55%. There is normal LV segmental wall motion. The left ventricular diastolic function and filling is normal for age. There is no ventricular septal defect visualized. RIGHT VENTRICLE The right ventricle is normal size. The right ventricular systolic function is normal. ATRIA The left atrium size is normal. The right atrium size is normal. The interatrial septum is intact wit h no evidence for an atrial septal defect or patent foramen ovale as noted on 2-D or Doppler imaging. AORTIC VALVE The aortic valve is normal in structure and function. The aortic valve is trileaflet. Doppler and Col or Flow revealed no significant aortic regurgitation. There is no significant aortic valvular stenosi s. MITRAL VALVE The mitral valve is normal in structure and function. There is no mitral valve stenosis. Doppler and Color Flow revealed trace mitral regurgitation. TRICUSPID VALVE The tricuspid valve is normal in structure and function. Doppler and Color Flow revealed mild tricusp id regurgitation. The PA pressure was estimated at 39 mmHg. There is no tricuspid valve stenosis. PULMONIC VALVE The pulmonic valve is not well visualized. Doppler and Color Flow revealed no pulmonic valvular regur gitation. There is no pulmonic valvular stenosis. GREAT VESSELS The aortic root is normal in size. The ascending aorta is normal in size. Normal pulmonary venous gregoria w (Doppler). The IVC was not visualized. PERICARDIAL EFFUSION There is large bilateral pleural effusions. Ascites documented as well. There is no evidence of signi ficant pericardial effusion. Critical Notification Date: 10/31/2016 Time: 15:56 Other Discipline : Kaylin Villa APRN Critical Value: Yes <Conclusion> Left ventricle systolic function is normal.The Ejection Fraction is 50-55%. There is normal LV segmental wall motion. Doppler and Color Flow revealed mild tricuspid regurgitation. The PA pressure was estimated at 39 mmH g. There is large bilateral pleural effusions. Ascites documented as well.
--- NOTE | 2016-10-31 16:10 | PDOC1 ---
History and Physical Date of Admission Date of Admission 10/31/16 Identification/Chief Complaint Chief Complaint bl feet edema Problems: Source Source: Chart review, Patient History of Present Illness History of Present Illness HPI Patient is a 57 year old -[place] male who presents with bilateral foot swelling x4ds. Pt is compliant with his HTN meds, denies GI PROBLEM. He noticed bl feet edema since Friday, no chest pain, sob, fever, cough, N/V. but as per ERP, He did run out of his blood pressure medicines but has a refill today at the pharmacies, go crab pick[facility]. States he took his last blood pressure medicine today. denies heavy drinker\ denies drug use, but + marijuana + in the urine. Past Medical History Cardiovascular: HTN Pulmonary: No pertinent hx GI: GERD Hepatobiliary: Other (pancreatitis ) Rheumatologic: No pertinent hx Infectious disease: No pertinent hx ENT: No pertinent hx Renal/: No pertinent hx Endocrine: No pertinent hx Dermatology: No pertinent hx Past Surgical History Past Surgical History: No pertinent history Family History Family History: Hypertension Social History Smoke: <1 pack per day ALCOHOL: other (6 can per week) Drugs: Marijuana (denies, UDS +) Current Problem List Problem List Problems Medical Problems: (1) Elevated troponin Status: Acute Current Medications Current Medications Current Medications Medications (Trade) Dose Ordered Sig/Luana Start Time Stop Time Status Last Admin Dose Admin Aspirin (Kathleen Aspirin) 325 mg 1X ONCE 10/31/16 11:30 10/31/16 11:31 DC 10/31/16 12:35 325 MG Furosemide (Lasix) 40 mg 1X ONCE 10/31/16 15:45 10/31/16 15:46 DC Morphine Sulfate 2 mg PRN Q2HR PRN 10/31/16 11:30 11/01/16 11:29 10/31/16 12:35 2 MG Ondansetron HCl (Zofran) 4 mg PRN Q8HRS PRN 10/31/16 11:30 11/01/16 11:29 Allergies Allergies Allergies Coded Allergies Type Severity Reaction Last Updated Verified No Known Drug Allergies 10/31/16 No ROS Review of System CONSTITUTIONAL: No fever or chills EYES: No recent changes SKIN: No rash or itching CARDIOVASCULAR: No chest pain, syncope, palpitations, or edema RESPIRATORY: No SOB or cough GASTROINTESTINAL: No nausea, vomiting or abdominal pain NEUROLOGICAL: No headaches or weakness ENDOCRINE: No cold or heat intolerance GENITOURINARY: No urgency or frequency of urination MUSCULOSKELETAL: No back pain or joint pain LYMPHATICS: No enlarged lymph nodes PSYCHIATRIC: No anxiety or depression Physical Exam Physical Exam GEN.: No apparent distress. Alert and oriented. HEENT: Head is normocephalic, atraumatic NECK: Supple. LUNGS: Clear to auscultation. HEART: RRR, S1, S2 present. Peripheral pulses intact ABDOMEN: Soft, nontender. Positive bowel sounds. EXTREMITIES: Without any cyanosis. bl feet and up to middle leg 1+ edema NEUROLOGIC: Normal speech, normal tone PSYCHIATRIC: Normal affect, normal mood. SKIN: No ulcerations Vitals Vitals Vital Signs Date Time Temp Pulse Resp B/P (MAP) Pulse Ox O2 Delivery O2 Flow Rate FiO2 10/31/16 14:25 Room Air 10/31/16 13:58 98.3 101 20 109/77 (88) 96 98.3 Labs Labs Laboratory Tests Test 10/31/16 10:05 10/31/16 10:10 Urine Collection Type Unknown Urine Color [place] Urine Clarity Clear Urine pH 5.5 Urine Specific [place] 1.025 Urine Protein Negative mg/dL (NEG-TRACE) Urine Glucose (UA) Negative mg/dL (NEG) Urine Ketones (Stick) 40 mg/dL (NEG) Urine Blood Negative (NEG) Urine Nitrite (NEG) Urine Bilirubin (NEG) Urine Urobilinogen Dipstick 2.0 mg/dL (0.2 mg/dL) Urine Leukocyte Esterase (NEG) Urine RBC 0 /HPF (0-2) Urine WBC 1-4 /HPF (0-4) Urine Squamous Epithelial Cells Few /LPF Urine Bacteria Few /HPF (0-FEW) Urine Mucus Marked /LPF Urine Opiates Screen Neg (NEG) Urine Methadone Screen Neg (NEG) Urine Barbiturates Neg (NEG) Urine Phencyclidine Screen Neg (NEG) Urine Amphetamine/Methamphetamine Neg (NEG) Urine Benzodiazepines Screen Neg (NEG) Urine Cocaine Screen Neg (NEG) Urine Cannabinoids Screen Pos (NEG) Urine Ethyl Alcohol Pos (NEG) White Blood Count 9.7 x10^3/uL (4.0-11.0) Red Blood Count 2.52 x10^6/uL (4.30-5.70) Hemoglobin 10.1 g/dL (13.0-17.5) Hematocrit 28.1 % (39.0-53.0) Mean Corpuscular Volume 111 fL (79-100) Mean Corpuscular Hemoglobin 40 pg (25-35) Mean Corpuscular Hemoglobin Concent 36 g/dL (31-37) Red Cell Distribution Width 16.9 % (11.5-14.5) Platelet Count 129 x10^3/uL (140-400) Neutrophils (%) (Auto) 55 % (31-73) Lymphocytes (%) (Auto) 28 % (24-48) Monocytes (%) (Auto) 16 % (0-9) Eosinophils (%) (Auto) 0 % (0-3) Basophils (%) (Auto) 0 % (0-3) Neutrophils # (Auto) 5.4 x10^3uL (1.8-7.7) Lymphocytes # (Auto) 2.8 x10^3/uL (1.0-4.8) Monocytes # (Auto) 1.6 x10^3/uL (0.0-1.1) Eosinophils # (Auto) 0.0 x10^3/uL (0.0-0.7) Basophils # (Auto) 0.0 x10^3/uL (0.0-0.2) Platelet Estimate Decreased (ADEQUATE) Polychromasia Present Anisocytosis Slight Macrocytosis Present Target Cells Present D-Dimer (Vianney) 14.41 ug/mlFEU (0.00-0.50) Sodium Level 129 mmol/L (136-145) Potassium Level 3.9 mmol/L (3.5-5.1) Chloride Level 94 mmol/L (98-107) Carbon Dioxide Level 24 mmol/L (21-32) Anion Gap 11 (6-14) Blood Urea Nitrogen 8 mg/dL (8-26) Creatinine 1.0 mg/dL (0.7-1.3) Estimated GFR (Cockcroft-Gault) 94.2 Glucose Level 84 mg/dL (70-99) Calcium Level 8.8 mg/dL (8.5-10.1) Magnesium Level 1.8 mg/dL (1.8-2.4) Total Bilirubin 7.5 mg/dL (0.2-1.0) Direct Bilirubin 4.6 mg/dL (0.0-0.2) Aspartate Amino Transf (AST/SGOT) 204 U/L (15-37) Alanine Aminotransferase (ALT/SGPT) 71 U/L (16-63) Alkaline Phosphatase 146 U/L (46-116) Creatine Kinase 265 U/L (39-308) Creatine Kinase MB (Mass) 2.1 ng/mL (0.0-3.6) Creatine Kinase MB Relative Index 0.8 % (0-4) Troponin I Quantitative 0.252 ng/mL (0.000-0.055) YU-Uuy-F-Type Natriuretic Peptide 839 pg/mL (0-124) Total Protein 7.7 g/dL (6.4-8.2) Albumin 2.6 g/dL (3.4-5.0) Thyroid Stimulating Hormone (TSH) 0.355 uIU/mL (0.358-3.74) Laboratory Tests Test 10/31/16 10:05 10/31/16 10:10 Urine Collection Type Unknown Urine Color [place] Urine Clarity Clear Urine pH 5.5 Urine Specific [place] 1.025 Urine Protein Negative mg/dL (NEG-TRACE) Urine Glucose (UA) Negative mg/dL (NEG) Urine Ketones (Stick) 40 mg/dL (NEG) Urine Blood Negative (NEG) Urine Nitrite (NEG) Urine Bilirubin (NEG) Urine Urobilinogen Dipstick 2.0 mg/dL (0.2 mg/dL) Urine Leukocyte Esterase (NEG) Urine RBC 0 /HPF (0-2) Urine WBC 1-4 /HPF (0-4) Urine Squamous Epithelial Cells Few /LPF Urine Bacteria Few /HPF (0-FEW) Urine Mucus Marked /LPF Urine Opiates Screen Neg (NEG) Urine Methadone Screen Neg (NEG) Urine Barbiturates Neg (NEG) Urine Phencyclidine Screen Neg (NEG) Urine Amphetamine/Methamphetamine Neg (NEG) Urine Benzodiazepines Screen Neg (NEG) Urine Cocaine Screen Neg (NEG) Urine Cannabinoids Screen Pos (NEG) Urine Ethyl Alcohol Pos (NEG) White Blood Count 9.7 x10^3/uL (4.0-11.0) Red Blood Count 2.52 x10^6/uL (4.30-5.70) Hemoglobin 10.1 g/dL (13.0-17.5) Hematocrit 28.1 % (39.0-53.0) Mean Corpuscular Volume 111 fL (79-100) Mean Corpuscular Hemoglobin 40 pg (25-35) Mean Corpuscular Hemoglobin Concent 36 g/dL (31-37) Red Cell Distribution Width 16.9 % (11.5-14.5) Platelet Count 129 x10^3/uL (140-400) Neutrophils (%) (Auto) 55 % (31-73) Lymphocytes (%) (Auto) 28 % (24-48) Monocytes (%) (Auto) 16 % (0-9) Eosinophils (%) (Auto) 0 % (0-3) Basophils (%) (Auto) 0 % (0-3) Neutrophils # (Auto) 5.4 x10^3uL (1.8-7.7) Lymphocytes # (Auto) 2.8 x10^3/uL (1.0-4.8) Monocytes # (Auto) 1.6 x10^3/uL (0.0-1.1) Eosinophils # (Auto) 0.0 x10^3/uL (0.0-0.7) Basophils # (Auto) 0.0 x10^3/uL (0.0-0.2) Platelet Estimate Decreased (ADEQUATE) Polychromasia Present Anisocytosis Slight Macrocytosis Present Target Cells Present D-Dimer (Vianney) 14.41 ug/mlFEU (0.00-0.50) Sodium Level 129 mmol/L (136-145) Potassium Level 3.9 mmol/L (3.5-5.1) Chloride Level 94 mmol/L (98-107) Carbon Dioxide Level 24 mmol/L (21-32) Anion Gap 11 (6-14) Blood Urea Nitrogen 8 mg/dL (8-26) Creatinine 1.0 mg/dL (0.7-1.3) Estimated GFR (Cockcroft-Gault) 94.2 Glucose Level 84 mg/dL (70-99) Calcium Level 8.8 mg/dL (8.5-10.1) Magnesium Level 1.8 mg/dL (1.8-2.4) Total Bilirubin 7.5 mg/dL (0.2-1.0) Direct Bilirubin 4.6 mg/dL (0.0-0.2) Aspartate Amino Transf (AST/SGOT) 204 U/L (15-37) Alanine Aminotransferase (ALT/SGPT) 71 U/L (16-63) Alkaline Phosphatase 146 U/L (46-116) Creatine Kinase 265 U/L (39-308) Creatine Kinase MB (Mass) 2.1 ng/mL (0.0-3.6) Creatine Kinase MB Relative Index 0.8 % (0-4) Troponin I Quantitative 0.252 ng/mL (0.000-0.055) JF-Aab-Q-Type Natriuretic Peptide 839 pg/mL (0-124) Total Protein 7.7 g/dL (6.4-8.2) Albumin 2.6 g/dL (3.4-5.0) Thyroid Stimulating Hormone (TSH) 0.355 uIU/mL (0.358-3.74) VTE Prophylaxis Ordered VTE Prophylaxis Devices: Yes VTE Pharmacological Prophylaxi: Yes Assessment/Plan Assessment/Plan 1. bl leg/feet edema , need to rule out chf 2. elevated troponin, 2/2 CHF likely 3. htn 4. drug abuse with marijuana 5. hyponatremia with chf likely 6. likely alcoholism 7. elevated transminites, elevated bilirubin 2/2 alcoholic hepatitis, maybe cirrhosis, and bile duct obstruction 8. microcytic anemia, thrombocytopenia 2/2 6 likely plan: gi, card consult echo abd us to rule out bile duct obstruction cycle CE cont home meds lasix 40mg iv x1 in ER labs daily dvt ppx KEAGAN FISHER MD Oct 31, 2016 16:10
[2016-10-31] MEDS ORDERED: DOCUSATE SODIUM 100 MG CAPSULE. PO PRN ×3 (16:15→16:30)
[2016-10-31] MEDS ORDERED: HYDROcodone/APAP 5/325MG 1 TAB TABLET PO PRN (16:15)
[2016-10-31] MEDS ORDERED: hydrALAZINE 20 MG/ML VIAL. IVP PRN (16:15)
[2016-10-31] MEDS ORDERED: ACETAMINOPHEN 325 MG TABLET. PO PRN (16:15)
[2016-10-31] MEDS ORDERED: traMADol 50 MG TABLET PO PRN (16:15)
[2016-10-31] MEDS: LOSARTAN POTASSIUM 50 MG TABLET. PO SCH (17:00)
[2016-10-31] MEDS: ALBUTEROL SULFATE 2.5 MG/3 ML NEBU. NEB SCH ×2 (17:00→20:00)
[2016-10-31] MEDS: PANTOPRAZOLE 40 MG TABLET.DR. PO SCH (17:30)
[2016-10-31 18:42] LABS: IRON,SERUM 105 ug/dL (65-175)
[2016-10-31 18:46] LABS: % SAT IRON 105 % (15-34)
[2016-10-31 19:45] VITALS: BP 116/91
[2016-10-31] MEDS: BUDESONIDE 0.5 MG/2 ML NEBU. NEB SCH (20:00)
[2016-10-31] MEDS: VENLAFAXINE 75 MG TABLET. PO SCH (21:00)
[2016-10-31] MEDS: ENOXAPARIN 40 MG/0.4 ML SYRINGE. SQ SCH (21:33)
[2016-10-31] MEDS: CETIRIZINE HCL 10 MG TABLET. PO SCH (21:33)
[2016-10-31 23:40] VITALS: BP 100/65
[2016-11-01] VITALS (7 sets, daily range): BP systolic 88–107; BP diastolic 44–79
[2016-11-01 05:10] LABS: BASO # 0.1 x10^3/uL (0.0-0.2); BASO % 1 % (0-3); EOS % 0 % (0-3); HEMATOCRIT 31.2 % (39.0-53.0); HEMOGLOBIN 10.6 g/dL (13.0-17.5); LYMPH # 3.1 x10^3/uL (1.0-4.8); LYMPH % 32 % (24-48); MEAN CORPUSCULAR HEMOGLOBIN 39 pg (25-35); MEAN CORPUSCULAR HGB CONC 34 g/dL (31-37); MEAN CORPUSCULAR VOLUME 116 fL (79-100); MONO % 13 % (0-9); NEUT % 53 % (31-73); PLATELET COUNT 130 x10^3/uL (140-400); RED CELL DISTRIBUTION WIDTH 17.3 % (11.5-14.5); WHITE BLOOD COUNT 9.5 x10^3/uL (4.0-11.0)
[2016-11-01 05:28] LABS: CALCIUM 8.7 mg/dL (8.5-10.1); CREATININE 1.1 mg/dL (0.7-1.3); GFR 84.4; POTASSIUM 3.5 mmol/L (3.5-5.1)
[2016-11-01 06:04] LABS: CHOLESTEROL/HDL RATIO 9.5
[2016-11-01] MEDS: ALBUTEROL SULFATE 2.5 MG/3 ML NEBU. NEB SCH ×2 (07:39→13:04)
[2016-11-01] MEDS: BUDESONIDE 0.5 MG/2 ML NEBU. NEB SCH (07:39)
--- NOTE | 2016-11-01 08:37 | RAD ---
Complete abdomen ultrasound study History: Elevated bilirubin. History of alcohol abuse. Lower extremities swelling. Comparison: October 18, 2013. Findings: The midline structures including the pancreas and abdominal aorta and IVC are not visualized due to overlying bowel gas. There is diffuse attenuation of sound throughout the liver with increased echogenicity of the liver. This may be seen with fatty infiltration of the liver or cirrhosis. This limits sonographic evaluation of the liver for focal hepatic lesions. No obvious focal hepatic mass is seen otherwise. The liver is mildly enlarged measuring 18.8 cm in length. Gallbladder polyps and biliary sludge is seen within the gallbladder. The extra hepatic bile duct is not visualized in this study. The spleen measures 9.5 cm in length which is normal. Moderate amount of ascites is present. The length of the right kidney is 12.0 cm and the length of the left kidney is 10.4 cm. Cyst of the left kidney is seen measuring 17 mm. The spleen measures 9.5 cm in length which is normal. IMPRESSION: Enlarged echogenic liver which could be due to fatty infiltration of the liver or cirrhosis. Moderate ascites. Common bile duct not visualized. Gallbladder polyps and biliary sludge within the gallbladder.
[2016-11-01] MEDS: VENLAFAXINE 75 MG TABLET. PO SCH ×2 (08:53→21:00)
[2016-11-01] MEDS: PANTOPRAZOLE 40 MG TABLET.DR. PO SCH (08:56)
[2016-11-01] MEDS: MORPHINE SULFATE 2 MG/ML DISP.SYRIN. IV PRN ×4 (08:57→21:26)
[2016-11-01] MEDS: LOSARTAN POTASSIUM 50 MG TABLET. PO SCH (08:57)
[2016-11-01 10:07] LABS: FOLATE 4.63 ng/ml (3.2-20.0)
[2016-11-01 11:30] LABS: VITAMIN-B12 > 2000 pg/mL (247-911)
--- NOTE | 2016-11-01 11:30 | PDOC ---
Subjective: Subjective: Feels "really good," asks to leave. No pain, tolerating PO. Objective: Objective: Per RN - only c/o foot pain. Vital Signs: Vital Signs Date Time Temp Pulse Resp B/P (MAP) Pulse Ox O2 Delivery O2 Flow Rate FiO2 11/01/16 11:02 98.1 99 18 95/72 (80) 93 Room Air 98.1 Labs: Laboratory Tests Test 10/31/16 17:18 10/31/16 18:00 10/31/16 23:15 11/01/16 02:30 Troponin I Quantitative 0.195 ng/mL 0.123 ng/mL Iron Level 105 ug/dL Total Iron Binding Capacity 100 ug/dL Iron Saturation 105 % White Blood Count 9.5 x10^3/uL Red Blood Count 2.70 x10^6/uL Hemoglobin 10.6 g/dL Hematocrit 31.2 % Mean Corpuscular Volume 116 fL Mean Corpuscular Hemoglobin 39 pg Mean Corpuscular Hemoglobin Concent 34 g/dL Red Cell Distribution Width 17.3 % Platelet Count 130 x10^3/uL Neutrophils (%) (Auto) 53 % Lymphocytes (%) (Auto) 32 % Monocytes (%) (Auto) 13 % Eosinophils (%) (Auto) 0 % Basophils (%) (Auto) 1 % Neutrophils # (Auto) 5.1 x10^3uL Lymphocytes # (Auto) 3.1 x10^3/uL Monocytes # (Auto) 1.3 x10^3/uL Eosinophils # (Auto) 0.0 x10^3/uL Basophils # (Auto) 0.1 x10^3/uL Sodium Level 131 mmol/L Potassium Level 3.5 mmol/L Chloride Level 92 mmol/L Carbon Dioxide Level 26 mmol/L Anion Gap 13 Blood Urea Nitrogen 10 mg/dL Creatinine 1.1 mg/dL Estimated GFR (Cockcroft-Gault) 84.4 Glucose Level 78 mg/dL Calcium Level 8.7 mg/dL Triglycerides Level 108 mg/dL Cholesterol Level 105 mg/dL LDL Cholesterol, Calculated 72 mg/dL VLDL Cholesterol, Calculated 22 mg/dL Non-HDL Cholesterol Calculated 94 mg/dL HDL Cholesterol 11 mg/dL Cholesterol/HDL Ratio 9.5 Free Thyroxine 1.30 ng/dL Imaging: Abd 10/31/16 IMPRESSION: Enlarged echogenic liver which could be due to fatty infiltration of the liver or cirrhosis. Moderate ascites. Common bile duct not visualized. Gallbladder polyps and biliary sludge within the gallbladder. Echocardiogram 10/31/16 Report pending. PE: GEN: NAD LUNGS: clear HEART: RRR ABD: distended, non-tender NEURO/PSYCH: A & O 3 A/P: Jaundice -alcoholism -bili >7 -Hepatitis panel pending -h/o alcoholic pancreatitis -US w/ ascites, fatty liver vs cirrhosis, GB polyps and sludge -- Asking to DC, continues to deny all GI symptoms. Discussed paracentesis, he is not interested at this time. D/w RN. STARR CHIN Nov 01, 2016 11:29
[2016-11-01] MEDS ORDERED: ALBUTEROL SULFATE 2.5 MG/3 ML NEBU. NEB PRN (12:15)
--- NOTE | 2016-11-01 12:31 | PDOC ---
PROGRESS NOTES Chief Complaint Chief Complaint 1. bl leg/feet edema , need to rule out chf 2. elevated troponin ,demanding ischemia? 3. htn 4. drug abuse with marijuana 5. hyponatremia with chf likely 6. likely alcoholism 7. elevated transminites, elevated bilirubin 2/2 alcoholic hepatitis, maybe cirrhosis, and bile duct obstruction 8. microcytic anemia, thrombocytopenia 2/2 6 likely 9. fatty liver vs. cirrhosis, ascites moderate, bile sludge plan: gi, card consulted echo pending abd us showed fatty liver vs. cirrhosis, ascites cycle CE cont home meds lasix 40mg iv x1 in ER add lasix 40mg daily labs daily dvt ppx pt not interested in paracentesis History of Present Illness History of Present Illness bl feet edema better Vitals Vitals Vital Signs Date Time Temp Pulse Resp B/P (MAP) Pulse Ox O2 Delivery O2 Flow Rate FiO2 11/01/16 11:02 98.1 99 18 95/72 (80) 93 Room Air 98.1 Physical Exam General: Alert, Oriented X3, Cooperative Heart: Regular rate, Normal S1, Normal S2, Other (tele: SR-ST) Lungs: Clear Abdomen: Normal bowel sounds, Soft, Other (distended, firm ) Extremities: No clubbing, No cyanosis, Other (1-2+ bilateral LE edema ) Skin: No significant lesion Labs LABS Laboratory Tests Test 10/31/16 17:18 10/31/16 18:00 10/31/16 23:15 11/01/16 02:30 Troponin I Quantitative 0.195 ng/mL (0.000-0.055) 0.123 ng/mL (0.000-0.055) Iron Level 105 ug/dL (65-175) Total Iron Binding Capacity 100 ug/dL (250-450) Iron Saturation 105 % (15-34) Vitamin B12 Level > 2000 pg/mL (247-911) Serum Folate 4.63 ng/ml (3.2-20.0) White Blood Count 9.5 x10^3/uL (4.0-11.0) Red Blood Count 2.70 x10^6/uL (4.30-5.70) Hemoglobin 10.6 g/dL (13.0-17.5) Hematocrit 31.2 % (39.0-53.0) Mean Corpuscular Volume 116 fL (79-100) Mean Corpuscular Hemoglobin 39 pg (25-35) Mean Corpuscular Hemoglobin Concent 34 g/dL (31-37) Red Cell Distribution Width 17.3 % (11.5-14.5) Platelet Count 130 x10^3/uL (140-400) Neutrophils (%) (Auto) 53 % (31-73) Lymphocytes (%) (Auto) 32 % (24-48) Monocytes (%) (Auto) 13 % (0-9) Eosinophils (%) (Auto) 0 % (0-3) Basophils (%) (Auto) 1 % (0-3) Neutrophils # (Auto) 5.1 x10^3uL (1.8-7.7) Lymphocytes # (Auto) 3.1 x10^3/uL (1.0-4.8) Monocytes # (Auto) 1.3 x10^3/uL (0.0-1.1) Eosinophils # (Auto) 0.0 x10^3/uL (0.0-0.7) Basophils # (Auto) 0.1 x10^3/uL (0.0-0.2) Sodium Level 131 mmol/L (136-145) Potassium Level 3.5 mmol/L (3.5-5.1) Chloride Level 92 mmol/L (98-107) Carbon Dioxide Level 26 mmol/L (21-32) Anion Gap 13 (6-14) Blood Urea Nitrogen 10 mg/dL (8-26) Creatinine 1.1 mg/dL (0.7-1.3) Estimated GFR (Cockcroft-Gault) 84.4 Glucose Level 78 mg/dL (70-99) Calcium Level 8.7 mg/dL (8.5-10.1) Triglycerides Level 108 mg/dL (0-150) Cholesterol Level 105 mg/dL (0-200) LDL Cholesterol, Calculated 72 mg/dL (0-100) VLDL Cholesterol, Calculated 22 mg/dL (0-40) Non-HDL Cholesterol Calculated 94 mg/dL (0-129) HDL Cholesterol 11 mg/dL (40-60) Cholesterol/HDL Ratio 9.5 Free Thyroxine 1.30 ng/dL (0.76-1.46) Review of Systems Review of Systems no fever, chills, sob or chest pain Assessment and Plan Assessmemt and Plan Problems Medical Problems: (1) Elevated troponin Status: Acute Problems: Comment Review of Relevant I have reviewed the following items gabriele (where applicable) has been applied. Labs Laboratory Tests Test 10/31/16 10:05 10/31/16 10:10 10/31/16 17:18 10/31/16 18:00 Urine Collection Type Unknown Urine Color [place] Urine Clarity Clear Urine pH 5.5 Urine Specific [place] 1.025 Urine Protein Negative mg/dL (NEG-TRACE) Urine Glucose (UA) Negative mg/dL (NEG) Urine Ketones (Stick) 40 mg/dL (NEG) Urine Blood Negative (NEG) Urine Nitrite (NEG) Urine Bilirubin (NEG) Urine Urobilinogen Dipstick 2.0 mg/dL (0.2 mg/dL) Urine Leukocyte Esterase (NEG) Urine RBC 0 /HPF (0-2) Urine WBC 1-4 /HPF (0-4) Urine Squamous Epithelial Cells Few /LPF Urine Bacteria Few /HPF (0-FEW) Urine Mucus Marked /LPF Urine Opiates Screen Neg (NEG) Urine Methadone Screen Neg (NEG) Urine Barbiturates Neg (NEG) Urine Phencyclidine Screen Neg (NEG) Urine Amphetamine/Methamphetamine Neg (NEG) Urine Benzodiazepines Screen Neg (NEG) Urine Cocaine Screen Neg (NEG) Urine Cannabinoids Screen Pos (NEG) Urine Ethyl Alcohol Pos (NEG) White Blood Count 9.7 x10^3/uL (4.0-11.0) Red Blood Count 2.52 x10^6/uL (4.30-5.70) Hemoglobin 10.1 g/dL (13.0-17.5) Hematocrit 28.1 % (39.0-53.0) Mean Corpuscular Volume 111 fL (79-100) Mean Corpuscular Hemoglobin 40 pg (25-35) Mean Corpuscular Hemoglobin Concent 36 g/dL (31-37) Red Cell Distribution Width 16.9 % (11.5-14.5) Platelet Count 129 x10^3/uL (140-400) Neutrophils (%) (Auto) 55 % (31-73) Lymphocytes (%) (Auto) 28 % (24-48) Monocytes (%) (Auto) 16 % (0-9) Eosinophils (%) (Auto) 0 % (0-3) Basophils (%) (Auto) 0 % (0-3) Neutrophils # (Auto) 5.4 x10^3uL (1.8-7.7) Lymphocytes # (Auto) 2.8 x10^3/uL (1.0-4.8) Monocytes # (Auto) 1.6 x10^3/uL (0.0-1.1) Eosinophils # (Auto) 0.0 x10^3/uL (0.0-0.7) Basophils # (Auto) 0.0 x10^3/uL (0.0-0.2) Platelet Estimate Decreased (ADEQUATE) Polychromasia Present Anisocytosis Slight Macrocytosis Present Target Cells Present D-Dimer (Vianney) 14.41 ug/mlFEU (0.00-0.50) Sodium Level 129 mmol/L (136-145) Potassium Level 3.9 mmol/L (3.5-5.1) Chloride Level 94 mmol/L (98-107) Carbon Dioxide Level 24 mmol/L (21-32) Anion Gap 11 (6-14) Blood Urea Nitrogen 8 mg/dL (8-26) Creatinine 1.0 mg/dL (0.7-1.3) Estimated GFR (Cockcroft-Gault) 94.2 Glucose Level 84 mg/dL (70-99) Calcium Level 8.8 mg/dL (8.5-10.1) Magnesium Level 1.8 mg/dL (1.8-2.4) Total Bilirubin 7.5 mg/dL (0.2-1.0) Direct Bilirubin 4.6 mg/dL (0.0-0.2) Aspartate Amino Transf (AST/SGOT) 204 U/L (15-37) Alanine Aminotransferase (ALT/SGPT) 71 U/L (16-63) Alkaline Phosphatase 146 U/L (46-116) Creatine Kinase 265 U/L (39-308) Creatine Kinase MB (Mass) 2.1 ng/mL (0.0-3.6) Creatine Kinase MB Relative Index 0.8 % (0-4) Troponin I Quantitative 0.252 ng/mL (0.000-0.055) 0.195 ng/mL (0.000-0.055) TG-Yes-L-Type Natriuretic Peptide 839 pg/mL (0-124) Total Protein 7.7 g/dL (6.4-8.2) Albumin 2.6 g/dL (3.4-5.0) Thyroid Stimulating Hormone (TSH) 0.355 uIU/mL (0.358-3.74) Iron Level 105 ug/dL (65-175) Total Iron Binding Capacity 100 ug/dL (250-450) Iron Saturation 105 % (15-34) Vitamin B12 Level > 2000 pg/mL (247-911) Serum Folate 4.63 ng/ml (3.2-20.0) Test 10/31/16 23:15 11/01/16 02:30 Troponin I Quantitative 0.123 ng/mL (0.000-0.055) White Blood Count 9.5 x10^3/uL (4.0-11.0) Red Blood Count 2.70 x10^6/uL (4.30-5.70) Hemoglobin 10.6 g/dL (13.0-17.5) Hematocrit 31.2 % (39.0-53.0) Mean Corpuscular Volume 116 fL (79-100) Mean Corpuscular Hemoglobin 39 pg (25-35) Mean Corpuscular Hemoglobin Concent 34 g/dL (31-37) Red Cell Distribution Width 17.3 % (11.5-14.5) Platelet Count 130 x10^3/uL (140-400) Neutrophils (%) (Auto) 53 % (31-73) Lymphocytes (%) (Auto) 32 % (24-48) Monocytes (%) (Auto) 13 % (0-9) Eosinophils (%) (Auto) 0 % (0-3) Basophils (%) (Auto) 1 % (0-3) Neutrophils # (Auto) 5.1 x10^3uL (1.8-7.7) Lymphocytes # (Auto) 3.1 x10^3/uL (1.0-4.8) Monocytes # (Auto) 1.3 x10^3/uL (0.0-1.1) Eosinophils # (Auto) 0.0 x10^3/uL (0.0-0.7) Basophils # (Auto) 0.1 x10^3/uL (0.0-0.2) Sodium Level 131 mmol/L (136-145) Potassium Level 3.5 mmol/L (3.5-5.1) Chloride Level 92 mmol/L (98-107) Carbon Dioxide Level 26 mmol/L (21-32) Anion Gap 13 (6-14) Blood Urea Nitrogen 10 mg/dL (8-26) Creatinine 1.1 mg/dL (0.7-1.3) Estimated GFR (Cockcroft-Gault) 84.4 Glucose Level 78 mg/dL (70-99) Calcium Level 8.7 mg/dL (8.5-10.1) Triglycerides Level 108 mg/dL (0-150) Cholesterol Level 105 mg/dL (0-200) LDL Cholesterol, Calculated 72 mg/dL (0-100) VLDL Cholesterol, Calculated 22 mg/dL (0-40) Non-HDL Cholesterol Calculated 94 mg/dL (0-129) HDL Cholesterol 11 mg/dL (40-60) Cholesterol/HDL Ratio 9.5 Free Thyroxine 1.30 ng/dL (0.76-1.46) Laboratory Tests Test 10/31/16 17:18 10/31/16 18:00 10/31/16 23:15 11/01/16 02:30 Troponin I Quantitative 0.195 ng/mL (0.000-0.055) 0.123 ng/mL (0.000-0.055) Iron Level 105 ug/dL (65-175) Total Iron Binding Capacity 100 ug/dL (250-450) Iron Saturation 105 % (15-34) Vitamin B12 Level > 2000 pg/mL (247-911) Serum Folate 4.63 ng/ml (3.2-20.0) White Blood Count 9.5 x10^3/uL (4.0-11.0) Red Blood Count 2.70 x10^6/uL (4.30-5.70) Hemoglobin 10.6 g/dL (13.0-17.5) Hematocrit 31.2 % (39.0-53.0) Mean Corpuscular Volume 116 fL (79-100) Mean Corpuscular Hemoglobin 39 pg (25-35) Mean Corpuscular Hemoglobin Concent 34 g/dL (31-37) Red Cell Distribution Width 17.3 % (11.5-14.5) Platelet Count 130 x10^3/uL (140-400) Neutrophils (%) (Auto) 53 % (31-73) Lymphocytes (%) (Auto) 32 % (24-48) Monocytes (%) (Auto) 13 % (0-9) Eosinophils (%) (Auto) 0 % (0-3) Basophils (%) (Auto) 1 % (0-3) Neutrophils # (Auto) 5.1 x10^3uL (1.8-7.7) Lymphocytes # (Auto) 3.1 x10^3/uL (1.0-4.8) Monocytes # (Auto) 1.3 x10^3/uL (0.0-1.1) Eosinophils # (Auto) 0.0 x10^3/uL (0.0-0.7) Basophils # (Auto) 0.1 x10^3/uL (0.0-0.2) Sodium Level 131 mmol/L (136-145) Potassium Level 3.5 mmol/L (3.5-5.1) Chloride Level 92 mmol/L (98-107) Carbon Dioxide Level 26 mmol/L (21-32) Anion Gap 13 (6-14) Blood Urea Nitrogen 10 mg/dL (8-26) Creatinine 1.1 mg/dL (0.7-1.3) Estimated GFR (Cockcroft-Gault) 84.4 Glucose Level 78 mg/dL (70-99) Calcium Level 8.7 mg/dL (8.5-10.1) Triglycerides Level 108 mg/dL (0-150) Cholesterol Level 105 mg/dL (0-200) LDL Cholesterol, Calculated 72 mg/dL (0-100) VLDL Cholesterol, Calculated 22 mg/dL (0-40) Non-HDL Cholesterol Calculated 94 mg/dL (0-129) HDL Cholesterol 11 mg/dL (40-60) Cholesterol/HDL Ratio 9.5 Free Thyroxine 1.30 ng/dL (0.76-1.46) Medications Current Medications Aspirin (Kathleen Aspirin) 325 mg 1X ONCE PO Last administered on 10/31/16 12:35 ; Start 10/31/16 at 11:30; Stop 10/31/16 at 11:31; Status DC Ondansetron HCl (Zofran) 4 mg PRN Q8HRS PRN IV NAUSEA/VOMITING; Start 10/31/16 at 11:30; Stop 10/31/16 at 16:16; Status DC Morphine Sulfate 2 mg PRN Q2HR PRN IV PAIN Last administered on 10/31/16 16:01 ; Start 10/31/16 at 11:30; Stop 10/31/16 at 16:16; Status DC Furosemide (Lasix) 40 mg 1X ONCE IVP Last administered on 10/31/16 15:57; Start 10/31/16 at 15:45; Stop 10/31/16 at 15:46; Status DC Docusate Sodium (Colace) 100 mg [id number] PRN PO CONSTIPATION; Start 10/31/16 at 16 :15; Status UNV Acetaminophen/ Hydrocodone Bitart (Lortab 5/325) 1 tab PRN Q6HRS PRN PO PAIN; Start 10/31/16 at 16:15 Albuterol Sulfate (Ventolin Neb Soln) 2.5 mg RTQID NEB ; Start 10/31/16 at 17:00 ; Stop 11/01/16 at 12:11; Status DC Cetirizine HCl (ZyrTEC) 10 mg QHS PO Last administered on 10/31/16 21:33; Start 10/31/16 at 21:00 Losartan Potassium (Cozaar) 100 mg DAILY PO Last administered on 11/01/16 08: 57; Start 10/31/16 at 17:00 Pantoprazole Sodium (Protonix) 40 mg DAILYAC PO Last administered on 11/01/16 08:56; Start 10/31/16 at 17:30 Venlafaxine HCl (Effexor) 37.5 mg BID PO ; Start 10/31/16 at 21:00 Acetaminophen (Tylenol) 650 mg PRN Q6HRS PRN PO FEVER; Start 10/31/16 at 16:15 Ondansetron HCl (Zofran) 4 mg PRN Q6HRS PRN IV NAUSEA/VOMITING; Start 10/31/16 at 16:15 Morphine Sulfate 2 mg PRN Q2HR PRN IV PAIN Last administered on 11/01/16 08:57 ; Start 10/31/16 at 16:15 Tramadol HCl (Ultram) 50 mg PRN Q6HRS PRN PO PAIN; Start 10/31/16 at 16:15 Hydralazine HCl (Apresoline) 10 mg PRN Q4HRS PRN IVP ELEVATED BP, SEE COMMENTS ; Start 10/31/16 at 16:15 Docusate Sodium (Colace) 100 mg PRN DAILY PRN PO CONSTIPATION; Start 10/31/16 at 16:15; Stop 10/31/16 at 16:20; Status DC Lorazepam (Ativan) 2 mg PRN Q4HRS PRN IV ANXIETY / AGITATION; Start 10/31/16 at 16:15 Enoxaparin Sodium (Lovenox 40mg Syringe) 40 mg Q24H SQ Last administered on 21:33; Start 10/31/16 at 21:00 Docusate Sodium (Colace) 100 mg PRN BID PRN PO CONSTIPATION Last administered on 11/01/16 08:56; Start 10/31/16 at 16:30 Budesonide (Pulmicort) 0.5 mg RTBID NEB ; Start 10/31/16 at 20:00; Stop at 12:11; Status DC Albuterol Sulfate (Ventolin Neb Soln) 2.5 mg PRN Q6HRS PRN NEB SHORTNESS OF BREATH; Start 11/01/16 at 12:15 Active Scripts Active Symbicort 160-4.5 Mcg Inhaler (Budesonide/Formoterol Fumarate) 10.2 Gm Hfa.aer.ad 10.2 Gm IH BID Reported Omeprazole 10 Mg Capsule.dr 10 Mg PO DAILY Venlafaxine Hcl 37.5 Mg Tablet 1 Tab PO BID Lortab 5-325 mg Tablet (Hydrocodone/Acetaminophen) 1 Each Tablet 1 Each PO Q6HRS PRN Miralax (Polyethylene Glycol 3350) 119 Gm Powder 119 Gm PO PRN Docusate Sodium 100 Mg Capsule 100 Mg PO BID66 PRN Losartan Potassium 100 Mg Tablet 100 Mg PO DAILY Zyrtec (Cetirizine Hcl) 10 Mg Capsule 10 Mg PO HS Vitals/I & O Vital Sign - Last 24 Hours 10/31/16 10/31/16 10/31/16 10/31/16 12:35 12:41 12:43 12:58 Temp 98.7 98.7 98.7 98.7 Pulse 20 101 Resp 20 20 B/P (MAP) 123/88 (100) 123/88 (100) Pulse Ox 97 95 95 O2 Delivery Room Air Room Air Room Air Room Air 10/31/16 10/31/16 10/31/16 10/31/16 13:08 13:32 13:58 14:25 Temp 98.7 98.3 98.7 98.3 Pulse 20 101 Resp 20 B/P (MAP) 123/88 (100) 109/77 (88) Pulse Ox 95 95 96 O2 Delivery Room Air Room Air Room Air Room Air 10/31/16 10/31/16 10/31/16 10/31/16 16:01 19:45 20:00 20:34 Temp 98.2 98.2 Pulse 112 Resp 18 14 B/P (MAP) 116/91 (99) Pulse Ox 96 95 O2 Delivery Room Air Room Air Room Air Room Air 10/31/16 10/31/16 11/01/16 11/01/16 21:04 23:40 02:41 07:00 Temp 98.6 98.1 97.9 98.6 98.1 97.9 Pulse 104 106 97 Resp 16 18 18 20 B/P (MAP) 100/65 (77) 107/79 (88) 101/75 (84) Pulse Ox 91 94 95 O2 Delivery Room Air Room Air Room Air 11/01/16 11/01/16 11/01/16 11/01/16 08:00 08:57 08:57 09:46 Pulse 97 B/P (MAP) 101/75 Pulse Ox 95 95 O2 Delivery Room Air Room Air Room Air 11/01/16 11:02 Temp 98.1 98.1 Pulse 99 Resp 18 B/P (MAP) 95/72 (80) Pulse Ox 93 O2 Delivery Room Air Intake and Output 10/31/16 10/31/16 11/01/16 15:00 23:00 07:00 Intake Total 240 ml 300 ml 770 ml Balance 240 ml 300 ml 770 ml KEAGAN FISHER MD Nov 01, 2016 12:31
--- NOTE | 2016-11-01 14:18 | PDOC ---
CARDIO Progress Notes Date and Time Date of Service 11/01/16 Time of Evaluation 1215 Subjective Subjective: No Chest Pain, No shortness of breath, Other (wants to go home ) Vitals Vitals Vital Signs Date Time Temp Pulse Resp B/P (MAP) Pulse Ox O2 Delivery O2 Flow Rate FiO2 11/01/16 14:04 93 Room Air 11/01/16 13:17 93/71 (78) 11/01/16 11:02 98.1 99 18 98.1 Weight Weight [ ] Input and Output Intake and Output Intake and Output 11/01/16 07:00 Intake Total 1310 ml Balance 1310 ml Intake Oral 1310 ml # Voids 7 Laboratory Labs Laboratory Tests Test 10/31/16 17:18 10/31/16 18:00 10/31/16 23:15 11/01/16 02:30 Troponin I Quantitative 0.195 ng/mL (0.000-0.055) 0.123 ng/mL (0.000-0.055) Iron Level 105 ug/dL (65-175) Total Iron Binding Capacity 100 ug/dL (250-450) Iron Saturation 105 % (15-34) Vitamin B12 Level > 2000 pg/mL (247-911) Serum Folate 4.63 ng/ml (3.2-20.0) White Blood Count 9.5 x10^3/uL (4.0-11.0) Red Blood Count 2.70 x10^6/uL (4.30-5.70) Hemoglobin 10.6 g/dL (13.0-17.5) Hematocrit 31.2 % (39.0-53.0) Mean Corpuscular Volume 116 fL (79-100) Mean Corpuscular Hemoglobin 39 pg (25-35) Mean Corpuscular Hemoglobin Concent 34 g/dL (31-37) Red Cell Distribution Width 17.3 % (11.5-14.5) Platelet Count 130 x10^3/uL (140-400) Neutrophils (%) (Auto) 53 % (31-73) Lymphocytes (%) (Auto) 32 % (24-48) Monocytes (%) (Auto) 13 % (0-9) Eosinophils (%) (Auto) 0 % (0-3) Basophils (%) (Auto) 1 % (0-3) Neutrophils # (Auto) 5.1 x10^3uL (1.8-7.7) Lymphocytes # (Auto) 3.1 x10^3/uL (1.0-4.8) Monocytes # (Auto) 1.3 x10^3/uL (0.0-1.1) Eosinophils # (Auto) 0.0 x10^3/uL (0.0-0.7) Basophils # (Auto) 0.1 x10^3/uL (0.0-0.2) Sodium Level 131 mmol/L (136-145) Potassium Level 3.5 mmol/L (3.5-5.1) Chloride Level 92 mmol/L (98-107) Carbon Dioxide Level 26 mmol/L (21-32) Anion Gap 13 (6-14) Blood Urea Nitrogen 10 mg/dL (8-26) Creatinine 1.1 mg/dL (0.7-1.3) Estimated GFR (Cockcroft-Gault) 84.4 Glucose Level 78 mg/dL (70-99) Calcium Level 8.7 mg/dL (8.5-10.1) Triglycerides Level 108 mg/dL (0-150) Cholesterol Level 105 mg/dL (0-200) LDL Cholesterol, Calculated 72 mg/dL (0-100) VLDL Cholesterol, Calculated 22 mg/dL (0-40) Non-HDL Cholesterol Calculated 94 mg/dL (0-129) HDL Cholesterol 11 mg/dL (40-60) Cholesterol/HDL Ratio 9.5 Free Thyroxine 1.30 ng/dL (0.76-1.46) Physical Exam HEENT: Neck Supple W Full Motion, Other (scleral icterus) Chest: Symmetric LUNGS: Clear to Auscultation Heart: S1S2, RRR (tele SR-ST), no murmurs Abdomen: Other (distended, firm) Extremities: Other (1+ bilateral LE edema ) Neurology: alert, oriented, follow commands Assessment Assessment 1. Mild troponin elevation; peak 0.252. suspect this is type II demand ischemia 2. Hypertension; controlled without meds 3. Mildly elevated NT Pro BNP; CXR without significant fluid accumulation 4. Hyponatremia 5. Hyperbilirubinemia/ascites; ? alcoholic hepatitis/cirrhosis- per GI 6. Elevated d-dimer- ? secondary to liver dx 7. Substance abuse Recommendations Echo revealed normal LV systolic function Discussed potential for further ischemic workup given history ad risk factors. Patient would like to defer at this time and will consider on an outpatient basis Continue mild diuresis Supportive care for a CV perspective. Please call with questions. VIN VAZQUEZ APRN Nov 01, 2016 14:18
[2016-11-01] MEDS: FUROSEMIDE 40 MG TABLET. PO SCH (17:27)
[2016-11-01] MEDS: ENOXAPARIN 40 MG/0.4 ML SYRINGE. SQ SCH (21:18)
[2016-11-01] MEDS: CETIRIZINE HCL 10 MG TABLET. PO SCH (21:18)
[2016-11-02 04:52] VITALS: BP 86/64
[2016-11-02 05:13] LABS: BASO % 0 % (0-3); EOS % 0 % (0-3); HEMATOCRIT 29.5 % (39.0-53.0); HEMOGLOBIN 10.2 g/dL (13.0-17.5); LYMPH # 2.2 x10^3/uL (1.0-4.8); LYMPH % 27 % (24-48); MEAN CORPUSCULAR HEMOGLOBIN 40 pg (25-35); MEAN CORPUSCULAR HGB CONC 35 g/dL (31-37); MEAN CORPUSCULAR VOLUME 116 fL (79-100); MONO % 17 % (0-9); NEUT % 56 % (31-73); PLATELET COUNT 119 x10^3/uL (140-400); RED BLOOD COUNT 2.55 x10^6/uL (4.30-5.70); RED CELL DISTRIBUTION WIDTH 16.5 % (11.5-14.5); WHITE BLOOD COUNT 8.2 x10^3/uL (4.0-11.0)
[2016-11-02 05:32] LABS: CALCIUM 8.6 mg/dL (8.5-10.1); GFR 42.3; POTASSIUM 3.4 mmol/L (3.5-5.1)
[2016-11-02 05:41] LABS: ALBUMIN 2.4 g/dL (3.4-5.0); DIRECT BILIRUBIN 4.9 mg/dL (0.0-0.2); TOTAL BILIRUBIN 8.5 mg/dL (0.2-1.0)
[2016-11-02 07:54] VITALS: BP 88/59
[2016-11-02] MEDS: VENLAFAXINE 75 MG TABLET. PO SCH (08:11)
[2016-11-02] MEDS: FUROSEMIDE 40 MG TABLET. PO SCH (08:11)
[2016-11-02] MEDS: PANTOPRAZOLE 40 MG TABLET.DR. PO SCH (08:45)
[2016-11-02] MEDS ORDERED: LOSARTAN POTASSIUM 50 MG TABLET. PO SCH (09:00)
[2016-11-02 10:49] VITALS: BP 85/55
[2016-11-02] MEDS ORDERED: POTASSIUM CHLORIDE 20 MEQ TABLET.ER. PO ONE (11:15)
--- NOTE | 2016-11-02 13:30 | PDOC3 ---
Discharge Summary [facility] Date of Admission: Oct 31, 2016 Discharge Date: Nov 02, 2016 Admitting Diagnosis 1. bl leg/feet edema 2/2 cirrhosis likely 2. elevated troponin ,demanding ischemia possible 3. htn, now low BP 4. drug abuse with marijuana 5. hyponatremia with cirrhosis 6. likely alcoholism 7. elevated transminites, elevated bilirubin 2/2 alcoholic hepatitis, maybe cirrhosis, and bile duct obstruction 8. microcytic anemia, thrombocytopenia 2/2 6 likely 9. US showed fatty liver vs. cirrhosis, ascites moderate, bile sludge, gallbladder polyps Problems: Final Diagnosis CONSULTS gi card Brief Hospital Course Patient is a 57 year old -Citizen Of [place] male who presents with bilateral foot swelling x4ds. Pt is compliant with his HTN meds, denies GI PROBLEM. He noticed bl feet edema since Friday, no chest pain, sob, fever, cough, N/V. but as per ERP, He did run out of his blood pressure medicines but has a refill today at the pharmacies, go pick out hand. States he took his last blood pressure medicine today. denies heavy drinker\ denies drug use, but + marijuana + in the urine. Echo normal. ABD US showed fatty liver vs. cirrhosis, bile duct sludge and gallbladder polyps. LFT also high with obstruction pic. also has moderate ascites. Pt is likely an alcoholism. He refuse paracentesis. Bl leg edema better with lasix x1 in ER. however, cannot cont give lasix given low BP dc home with no lasix, hold losartan. asked pt to fu with pcp next week, if bp ok, should be on lasix. dc time 35min. General: Alert, Oriented X3, Cooperative Heart: Regular rate, Normal S1, Normal S2, Other (tele: SR-ST) Lungs: Clear Abdomen: Normal bowel sounds, Soft, Other (distended, firm ) Extremities: No clubbing, No cyanosis, Other (2+ bilateral LE edema upper to middle leg and feet) Skin: No significant lesion Problems: Disposition home CONDITION AT DISCHARGE: Improved Diet regular Scheduled Budesonide/Formoterol Fumarate (Symbicort 160-4.5 Mcg Inhaler), 10.2 GM IH BID Cetirizine Hcl (Zyrtec), 10 MG PO HS, (Reported) Omeprazole (Omeprazole), 10 MG PO DAILY, (Reported) Venlafaxine Hcl (Venlafaxine Hcl), 1 TAB PO BID, (Reported) Scheduled PRN Docusate Sodium (Docusate Sodium), 100 MG PO [id number] PRN for CONSTIPATION, ( Reported) Hydrocodone/Acetaminophen (Lortab 5-325 mg Tablet), 1 EACH PO Q6HRS PRN for PAIN , (Reported) Polyethylene Glycol 3350 (Miralax), 119 GM PO for CONSTIPATION, (Reported) Discontinued Medications Losartan Potassium (Losartan Potassium), 100 MG PO DAILY, (Reported) Follow Up pcp in 2 weeks KEAGAN FISHER MD Nov 02, 2016 13:30
== END 2016-11-02 12:20 | disposition home or self-care (01) | DRG 432 ==
LOC: ER 09:40 → EDBD 09:40 → 6 SOUTH 11:00 → OBSVTOIN 11-01 10:33
PROVIDERS: ADMIT Internal Medicine; ATTEND Internal Medicine
DX: K70.31 Alcoholic cirrhosis of liver with ascites (principal); K83.1 Obstruction of bile duct; I24.8 Other forms of acute ischemic heart disease; E87.1 Hypo-osmolality and hyponatremia; E78.1 Pure hyperglyceridemia; K70.11 Alcoholic hepatitis with ascites; F17.210 Nicotine dependence, cigarettes, uncomplicated; D69.59 Other secondary thrombocytopenia; D50.9 Iron deficiency anemia, unspecified; I10 Essential (primary) hypertension; K21.9 Gastro-esophageal reflux disease without esophagitis; K76.0 Fatty (change of) liver, not elsewhere classified; F10.20 Alcohol dependence, uncomplicated; G89.29 Other chronic pain; K59.00 Constipation, unspecified; M19.90 Unspecified osteoarthritis, unspecified site; F12.10 Cannabis abuse, uncomplicated; K82.4 Cholesterolosis of gallbladder; Z80.0 Family history of malignant neoplasm of digestive organs; Z82.49 Family history of ischemic heart disease and other diseases of the circulatory system; Z79.899 Other long term (current) drug therapy; Z79.1 Long term (current) use of non-steroidal anti-inflammatories (NSAID); Z79.82 Long term (current) use of aspirin
CPT/HCPCS: 36415; 71010; 76700; 80048; 80061; 80076; 81001; 82553; 82607; 82746; 83540; 83550; 83735; 83880; 84439; 84443; 84484; 85007; 85027; 85379; 93005; 93306; G0378; G0379; G0481; J1650; J1940; J2270; 99285-25